=== PATIENT | male | born 1980 | race Caucasian/White ===

== ENCOUNTER 2020-08-19 21:18 | Emergency (ER) | payer OTHER ==
[~2020-08-19] VITALS: Ht 157.4 cm; Wt 54.4 kg
== END 2020-08-19 22:45 | disposition home or self-care (01) ==
LOC: ED 21:18
DX: S93.402A Sprain of unspecified ligament of left ankle, initial encounter (principal); Z88.8 Allergy status to other drugs, medicaments and biological substances; X58.XXXA Exposure to other specified factors, initial encounter; Y93.89 Activity, other specified; Y92.89 Other specified places as the place of occurrence of the external cause; Y99.8 Other external cause status

== ENCOUNTER 2021-03-24 19:44 | Emergency (ER) | payer OTHER ==
[~2021-03-24] VITALS: Ht 157.4 cm; Wt 54.4 kg
== END 2021-03-25 02:05 | disposition home or self-care (01) ==
LOC: ED 19:44
DX: S06.0X9A Concussion with loss of consciousness of unspecified duration, initial encounter (principal); S46.912A Strain of unspecified muscle, fascia and tendon at shoulder and upper arm level, left arm, initial encounter; S39.012A Strain of muscle, fascia and tendon of lower back, initial encounter; S86.911A Strain of unspecified muscle(s) and tendon(s) at lower leg level, right leg, initial encounter; M51.34 Other intervertebral disc degeneration, thoracic region; W22.8XXA Striking against or struck by other objects, initial encounter; Y93.89 Activity, other specified; Y92.89 Other specified places as the place of occurrence of the external cause; Y99.8 Other external cause status

== ENCOUNTER 2021-07-05 18:09 | Emergency (ER) | payer OTHER | END 2021-07-05 18:55 | disposition left against medical advice (07) | LOC: ED 18:09 | DX: Z00.00 Encounter for general adult medical examination without abnormal findings (principal); Z53.21 Procedure and treatment not carried out due to patient leaving prior to being seen by health care provider ==

== ENCOUNTER 2021-07-06 10:37 | Emergency (ER) | payer OTHER ==
[~2021-07-06] VITALS: Ht 157.4 cm; Wt 51.3 kg
== END 2021-07-06 10:50 | disposition home or self-care (01) ==
LOC: ED 10:37
DX: S99.922A Unspecified injury of left foot, initial encounter (principal); Z88.8 Allergy status to other drugs, medicaments and biological substances; W23.0XXA Caught, crushed, jammed, or pinched between moving objects, initial encounter; Y93.89 Activity, other specified; Y92.89 Other specified places as the place of occurrence of the external cause; Y99.8 Other external cause status

== ENCOUNTER 2021-08-23 07:19 | Emergency (ER) | payer OTHER ==
[~2021-08-23] VITALS: Wt 52.2 kg
== END 2021-08-23 10:06 | disposition home or self-care (01) ==
LOC: ED 07:19
DX: S01.81XA Laceration without foreign body of other part of head, initial encounter (principal); Z88.8 Allergy status to other drugs, medicaments and biological substances; Y08.89XA Assault by other specified means, initial encounter; Y93.89 Activity, other specified; Y92.89 Other specified places as the place of occurrence of the external cause; Y99.8 Other external cause status

== ENCOUNTER 2023-02-05 12:38 | Emergency (ER) | payer OTHER ==
[~2023-02-05] VITALS: Ht 157.4 cm; Wt 53.1 kg
== END 2023-02-05 13:07 | disposition home or self-care (01) ==
LOC: ED 12:38
DX: M25.562 Pain in left knee (principal); Z88.8 Allergy status to other drugs, medicaments and biological substances; V80.010A Animal-rider injured by fall from or being thrown from horse in noncollision accident, initial encounter; Y93.89 Activity, other specified; Y92.89 Other specified places as the place of occurrence of the external cause; Y99.8 Other external cause status

== ENCOUNTER 2023-09-15 13:25 | Emergency (ER) | payer OTHER ==
[~2023-09-15] VITALS: Ht 157.4 cm; Wt 52.2 kg
== END 2023-09-15 15:21 | disposition left against medical advice (07) ==
LOC: ED 13:25
DX: M54.50 Low back pain, unspecified (principal); Z88.8 Allergy status to other drugs, medicaments and biological substances; Z53.21 Procedure and treatment not carried out due to patient leaving prior to being seen by health care provider; W19.XXXA Unspecified fall, initial encounter

== ENCOUNTER 2024-02-25 18:49 | Emergency (ER) | payer OTHER ==
[~2024-02-25] VITALS: Ht 157.4 cm; Wt 52.2 kg
== END 2024-02-25 19:18 | disposition home or self-care (01) ==
LOC: ED 18:49
DX: Z00.00 Encounter for general adult medical examination without abnormal findings (principal); Z88.8 Allergy status to other drugs, medicaments and biological substances

== ENCOUNTER 2025-02-05 11:53 | Emergency (ER) | payer OTHER ==
[~2025-02-05] VITALS: Ht 157.4 cm; Wt 54.4 kg
[2025-02-05] MEDS ORDERED: Doxycycline Hyclate 100 MG CAPSULE PO ONE (13:05)
[2025-02-05] MEDS ORDERED: SODIUM CHLORIDE 0.9% 1,000 ML IV ONE (13:05)
[2025-02-05] MEDS ORDERED: methylPREDNISolone sod succ 125 MG VIAL IV ONE (13:05)
[2025-02-05 13:19] LABS: BASO % 0.1 % (0.0-1.0); EOS # 0.1 10*3/uL (0.0-0.4); HEMATOCRIT 44.3 % (42.0-52.0); MEAN CELL VOLUME 94.9 fl (80.0-94.0); MEAN CORPUSCULAR HGB 31.5 pg (27.0-31.0); MEAN CORPUSCULAR HGB CONC 33.2 g/dl (33.0-37.0); MEAN PLATELET VOLUME 9.2 fl (9.6-12.3); MONO # 0.4 10*3/uL (0.1-1.0); MONO % 3.6 % (3.0-9.0); NEUT # 9.6 10*3/uL (2.3-7.9); NEUT % 89.3 % (47.0-73.0); PLATELET COUNT AUTOMATED 355 10*3/uL (130-400); RED BLOOD COUNT 4.67 10*6/uL (4.50-5.90); RED CELL DISTRI WIDTH 11.6 % (0-14.5); WHITE BLOOD COUNT 10.8 10*3/uL (4.8-10.8)
[2025-02-05 13:41] LABS: ALKALINE PHOSPHATASE 130 U/L (46-116); BUN 11 mg/dl (9-23); CHLORIDE 96 mmol/L (98-107); POTASSIUM 4.3 mmol/L (3.4-5.1); SGPT/ALT 53 U/L (5-49); TOTAL PROTEIN 8.4 gm/dL (6.0-8.0)
[2025-02-05] MEDS ORDERED: PREDNISONE20 M1 PO (15:00)
[2025-02-05] MEDS ORDERED: VIBRAMYCIN100 MG PO (15:00)
== END 2025-02-05 15:10 | disposition home or self-care (01) ==
LOC: ED 11:53
PROVIDERS: Internal Medicine
DX: R21 Rash and other nonspecific skin eruption (principal); R53.83 Other fatigue; M54.2 Cervicalgia; Z88.8 Allergy status to other drugs, medicaments and biological substances; R22.1 Localized swelling, mass and lump, neck

== ENCOUNTER 2025-04-16 08:26 | Emergency (ER) | payer OTHER ==
[~2025-04-16] VITALS: Wt 63.0 kg
[~2025-04-16 08:26] MED LIST: PREDNISONE20 M1 PO; VIBRAMYCIN100 MG PO
[2025-04-16] MEDS ORDERED: Ondansetron Hydrochloride 4 MG/2 ML VIAL IV ONE (08:30)
[2025-04-16] MEDS ORDERED: Dexamethasone Sodium Phospha 20 MG/5 ML VIAL IV ONE (09:05)
[2025-04-16] MEDS ORDERED: HYDROmorphONE Hydrochloride 0.5 MG/0.5 ML SYRINGE IV ONE (09:05)
[2025-04-16] MEDS ORDERED: IOHEXOL 300 MG/ML 100 ML VIAL IV ONE (09:30)
[2025-04-16] MEDS ORDERED: NAPROSYN500 MG PO (10:41)
[2025-04-16] MEDS ORDERED: TRAMADOL HCL50 MG PO (10:41)
[2025-04-16] MEDS ORDERED: PREDNISONE20 M1 PO (10:41)
== END 2025-04-16 10:46 | disposition home or self-care (01) ==
LOC: ED 08:26
DX: S30.0XXA Contusion of lower back and pelvis, initial encounter (principal); S20.229A Contusion of unspecified back wall of thorax, initial encounter; Z79.899 Other long term (current) drug therapy; Z88.8 Allergy status to other drugs, medicaments and biological substances; V80.010A Animal-rider injured by fall from or being thrown from horse in noncollision accident, initial encounter; Y93.52 Activity, horseback riding; Y92.89 Other specified places as the place of occurrence of the external cause; Y99.8 Other external cause status

== ENCOUNTER 2025-04-28 18:55 | Emergency (ER) | payer OTHER ==
[~2025-04-28] VITALS: Ht 157.4 cm; Wt 53.5 kg
[~2025-04-28 18:55] MED LIST changes: +NAPROSYN500 MG PO; +TRAMADOL HCL50 MG PO
[2025-04-28 19:42] LABS: URINE AMPHETAMINES Negative (1000ng/ml); URINE BARBITURATES Negative (200ng/ml); URINE BENZODIAZEPINES Negative (200ng/ml); URINE CANNABINOIDS (THC) Negative (50ng/ml); URINE COCAINE Negative (300ng/ml); URINE METHADONE Negative (300ng/ml); URINE OPIATES Negative (300ng/ml); URINE PHENCYCLIDINE Negative (25ng/ml)
== END 2025-04-28 20:21 | disposition home or self-care (01) ==
LOC: ED 18:55
PROVIDERS: Nurse Practitioner Family
DX: Z13.89 Encounter for screening for other disorder (principal); Z88.8 Allergy status to other drugs, medicaments and biological substances

== ENCOUNTER 2025-05-16 09:32 | Emergency (ER) | payer OTHER ==
[~2025-05-16] VITALS: Ht 157.4 cm; Wt 54.4 kg
[2025-05-16] MEDS ORDERED: HYDROmorphONE Hydrochloride 0.5 MG/0.5 ML SYRINGE IM ONE (09:35)
[2025-05-16] MEDS ORDERED: TRAMADOL HCL50 MG PO (10:37)
== END 2025-05-16 10:49 | disposition home or self-care (01) ==
LOC: ED 09:32
DX: S20.211A Contusion of right front wall of thorax, initial encounter (principal); Z88.8 Allergy status to other drugs, medicaments and biological substances; V80.010A Animal-rider injured by fall from or being thrown from horse in noncollision accident, initial encounter; Y93.89 Activity, other specified; Y92.89 Other specified places as the place of occurrence of the external cause; Y99.8 Other external cause status